=== PATIENT | male | born 1990 | race Caucasian/White ===

== ENCOUNTER 2019-12-10 13:35 | Inpatient (IN) | payer MEDICAID, SELFPAY ==
[~2019-12-10] VITALS: Ht 170.2 cm; Wt 75.3 kg
[~2019-12-10 13:35] MED LIST: DIVA500T52 PO; PALI6 PO; QUET400T PO
[2019-12-10] MEDS ORDERED: RISP.5 PO (14:26)
[2019-12-10 16:27] LABS: BASOPHILS % (AUTO) 0.4 % (0.0-2.0); EOSINOPHILS % (AUTO) 0.3 % (1.0-6.0); HEMATOCRIT 49.9 % (41-53); HEMOGLOBIN 16.1 g/dL (13.5-17.5); LYMPHOCYTES # (AUTO) 1.6 K/uL (1.0-4.8); LYMPHOCYTES % (AUTO) 23.5 % (22.0-44.0); MEAN CORPUSCULAR HEMOGLOBIN 28.5 pg (26.0-34.0); MEAN CORPUSCULAR HGB CONC 32.3 G/dL (31.0-37.0); MEAN CORPUSCULAR VOLUME 88 fL (80-100); MONOCYTES # (AUTO) 0.5 K/uL (0.1-1.0); MONOCYTES % (AUTO) 7.3 % (2.0-9.0); NEUTROPHILS # (AUTO) 4.6 K/uL (1.8-7.7); NEUTROPHILS % (AUTO) 68.5 % (40.0-70.0); PLATELET COUNT (AUTO) 167 K/uL (150-450); RED BLOOD CELL COUNT(AUTO) 5.65 MIL/uL (4.50-5.90)
[2019-12-10 16:39] LABS: ANION GAP 10 mmol/L (8-16); CALCIUM, TOTAL 8.5 mg/dL (8.8-10.5); CARBON DIOXIDE 25 mmol/L (22-29); CHLORIDE 104 mmol/L (98-107); CREATININE 0.61 mg/dL (0.60-1.30); GLOMERULAR FILTR. RATE CALC > 60 mL/min (>60); GLUCOSE,RANDOM 89 mg/dL (70-110); POTASSIUM 3.6 mmol/L (3.5-5.1); SODIUM SERUM 139 mmol/L (136-145); UREA NITROGEN, BLOOD 10 mg/dL (7-18)
[2019-12-10 16:44] LABS: ALANINE AMINOTRANSFERASE 16 U/L (12-78); ALBUMIN 4.2 g/dL (3.4-5.0); ALKALINE PHOSPHATASE 54 U/L (46-116); ASPARTATE AMINOTRANSFERASE 13 U/L (15-37); BILIRUBIN,TOTAL 0.4 mg/dL (0.1-1.0); TOTAL PROTEIN, SERUM 7.8 g/dL (6.4-8.2)
[2019-12-10 16:44] LABS: AMPHET/METH SCREEN,URINE NEGATIVE (NEGATIVE); BARBITURATE SCREEN, URINE NEGATIVE (NEGATIVE); BENZODIAZEPINES SCREEN,URINE NEGATIVE (NEGATIVE); CANNABINOID SCREEN,URINE NEGATIVE (NEGATIVE); COCAINE SCREEN,URINE NEGATIVE (NEGATIVE); METHADONE SCREEN, URINE NEGATIVE (NEGATIVE); OPIATE SCREEN,URINE NEGATIVE (NEGATIVE)
[2019-12-10 16:45] LABS: PHENCYCLIDINE SCREEN,URINE NEGATIVE (NEGATIVE)
[2019-12-10] MEDS ORDERED: DiphenhydrAMINE HCL 25 MG CAPSULE PO ONE (16:45)
[2019-12-10] MEDS ORDERED: HALOPERIDOL 5 MG TABLET PO ONE (16:45)
[2019-12-10] MEDS ORDERED: LORazepam 1 MG TABLET PO ONE (16:45)
[2019-12-10 20:14] VITALS: BP 136/70
[2019-12-10] MEDS ORDERED: PNEUMOCOCCAL VACCINE POLYVALENT 0.5 ML VIAL [PPSV23] IM ONE (20:30)
[2019-12-10] MEDS: DIVALPROEX SODIUM 500 MG DR TABLET PO SCH (21:00)
[2019-12-10] MEDS: RisperiDONE 3 MG TABLET PO SCH (21:37)
[2019-12-11] MEDS ORDERED: DOCUSATE SODIUM 100 MG CAPSULE PO PRN (08:15)
[2019-12-11] MEDS ORDERED: CloNIDine HCL 0.1 MG TABLET PO PRN (08:15)
[2019-12-11] MEDS ORDERED: IBUPROFEN 600 MG TABLET PO PRN (08:15)
[2019-12-11] MEDS ORDERED: LOPERAMIDE HCL 2 MG CAPSULE PO PRN (08:15)
[2019-12-11] MEDS ORDERED: ONDANSETRON HCL 4 MG TABLET PO PRN (08:15)
[2019-12-11] MEDS ORDERED: PETROLATUM,WHITE 28 GM JELLY TP PRN (08:15)
[2019-12-11] MEDS ORDERED: ALBUTEROL SULFATE HFA 90 MCG/PUFF 8 GM INHALER IH PRN (08:15)
[2019-12-11] MEDS ORDERED: BACITRACIN 28.4 GM OINTMENT TP PRN (08:15)
[2019-12-11] MEDS ORDERED: OMEPRAZOLE 20 MG CAPSULE PO PRN (08:15)
[2019-12-11] MEDS ORDERED: MAGNESIUM HYDROXIDE SUSPENSION 30 ML UDCUP PO PRN (08:15)
[2019-12-11] MEDS ORDERED: ACETAMINOPHEN 325 MG TABLET PO PRN (08:15)
[2019-12-11] MEDS: RisperiDONE 3 MG TABLET PO SCH ×2 (08:37→16:52)
[2019-12-11 08:59] LABS: CHOL/HDL RATIO 3.5 (4.2-7.3)
[2019-12-11 09:27] VITALS: BP 132/71
[2019-12-11 17:11] VITALS: BP 146/90
[2019-12-11] MEDS: DIVALPROEX SODIUM 500 MG DR TABLET PO SCH (20:48)
[2019-12-12 06:42] VITALS: BP 108/71
[2019-12-12] MEDS: LORazepam 2 MG TABLET PO PRN (08:22)
[2019-12-12] MEDS: RisperiDONE 3 MG TABLET PO SCH ×2 (08:22→17:26)
[2019-12-12 08:31] VITALS: BP 111/74
[2019-12-12 16:10] VITALS: BP 125/80
[2019-12-12] MEDS: DIVALPROEX SODIUM 500 MG DR TABLET PO SCH (21:43)
[2019-12-13 05:15] VITALS: BP 130/76
[2019-12-13 08:25] VITALS: BP 139/76
[2019-12-13] MEDS: RisperiDONE 3 MG TABLET PO SCH ×2 (08:38→16:01)
[2019-12-13] MEDS ORDERED: RisperiDONE MICROSPHERES 50 MG/2 ML SYRINGE IM ONE (13:00)
[2019-12-13] MEDS: LORazepam 2 MG TABLET PO PRN (16:01)
[2019-12-13 16:13] VITALS: BP 132/85
[2019-12-13] MEDS: ZOLPIDEM TARTRATE 10 MG TABLET PO PRN (21:00)
[2019-12-13] MEDS: DIVALPROEX SODIUM 500 MG DR TABLET PO SCH (21:00)
[2019-12-14 00:32] VITALS: BP 111/77
[2019-12-14 08:21] VITALS: BP 141/86
[2019-12-14] MEDS: LORazepam 2 MG TABLET PO PRN ×2 (08:31→16:33)
[2019-12-14] MEDS: RisperiDONE 3 MG TABLET PO SCH ×2 (08:31→16:33)
[2019-12-14] MEDS: HALOPERIDOL 5 MG TABLET PO PRN ×2 (09:34→16:33)
[2019-12-14] MEDS: ATENOLOL 25 MG TABLET PO SCH (09:34)
[2019-12-14 16:19] VITALS: BP 126/61
[2019-12-14] MEDS: ZOLPIDEM TARTRATE 10 MG TABLET PO PRN (20:37)
[2019-12-14] MEDS: DIVALPROEX SODIUM 500 MG DR TABLET PO SCH (20:37)
[2019-12-15 05:07] VITALS: BP 131/76
[2019-12-15 08:04] VITALS: BP 127/56
[2019-12-15] MEDS: ATENOLOL 25 MG TABLET PO SCH (09:37)
[2019-12-15] MEDS: RisperiDONE 3 MG TABLET PO SCH ×2 (09:37→16:02)
[2019-12-15] MEDS: HALOPERIDOL 5 MG TABLET PO PRN (16:02)
[2019-12-15] MEDS: LORazepam 2 MG TABLET PO PRN (16:02)
[2019-12-15 16:44] VITALS: BP 132/81
[2019-12-15] MEDS: DIVALPROEX SODIUM 500 MG DR TABLET PO SCH (20:18)
[2019-12-16] MEDS: LORazepam 2 MG TABLET PO PRN ×2 (03:40→16:29)
[2019-12-16] MEDS: HALOPERIDOL 5 MG TABLET PO PRN ×2 (03:40→16:29)
[2019-12-16] MEDS: MAG HYDROX/AL HYDROX/SIMETH ES 30 ML SUSPENSION UDCUP PO PRN (03:49)
[2019-12-16 05:00] VITALS: BP 114/63
[2019-12-16] MEDS: RisperiDONE 3 MG TABLET PO SCH ×2 (09:04→16:32)
[2019-12-16] MEDS: ATENOLOL 25 MG TABLET PO SCH (09:04)
[2019-12-16 09:36] VITALS: BP 140/80
[2019-12-16 16:13] VITALS: BP 131/83
[2019-12-16] MEDS: BENZOCAINE/MENTHOL LOZENGE MM PRN ×2 (17:59→22:32)
[2019-12-16] MEDS: DIVALPROEX SODIUM 500 MG DR TABLET PO SCH (20:41)
[2019-12-17 00:39] VITALS: BP 122/79
[2019-12-17 08:00] VITALS: BP 129/69
[2019-12-17] MEDS: HALOPERIDOL 5 MG TABLET PO PRN ×2 (08:01→13:26)
[2019-12-17] MEDS: ATENOLOL 25 MG TABLET PO SCH (08:01)
[2019-12-17] MEDS: LORazepam 2 MG TABLET PO PRN ×2 (08:01→13:26)
[2019-12-17] MEDS: RisperiDONE 3 MG TABLET PO SCH ×2 (08:01→16:16)
[2019-12-17 16:10] VITALS: BP 133/76
[2019-12-17] MEDS: BENZOCAINE/MENTHOL LOZENGE MM PRN ×2 (16:16→21:46)
[2019-12-17] MEDS: DIVALPROEX SODIUM 500 MG DR TABLET PO SCH (21:12)
[2019-12-17] MEDS: ZOLPIDEM TARTRATE 10 MG TABLET PO PRN (21:46)
[2019-12-18 06:30] VITALS: BP 135/79
[2019-12-18] MEDS: BENZOCAINE/MENTHOL LOZENGE MM PRN (06:31)
[2019-12-18] MEDS: ATENOLOL 25 MG TABLET PO SCH (08:35)
[2019-12-18] MEDS: RisperiDONE 3 MG TABLET PO SCH ×2 (08:35→16:39)
[2019-12-18] MEDS: HALOPERIDOL 5 MG TABLET PO PRN ×2 (08:35→16:39)
[2019-12-18] MEDS: LORazepam 2 MG TABLET PO PRN ×2 (08:35→16:39)
[2019-12-18 08:45] VITALS: BP 177/108
[2019-12-18 16:28] VITALS: BP 133/96
[2019-12-18] MEDS: DIVALPROEX SODIUM 500 MG DR TABLET PO SCH (20:39)
[2019-12-18] MEDS: ZOLPIDEM TARTRATE 10 MG TABLET PO PRN (20:39)
[2019-12-19] MEDS: BENZOCAINE/MENTHOL LOZENGE MM PRN ×2 (01:09→06:18)
[2019-12-19 01:18] VITALS: BP 124/87
[2019-12-19] MEDS: HALOPERIDOL 5 MG TABLET PO PRN ×2 (08:29→16:38)
[2019-12-19] MEDS: ATENOLOL 25 MG TABLET PO SCH (08:30)
[2019-12-19] MEDS: RisperiDONE 3 MG TABLET PO SCH ×2 (08:30→16:38)
[2019-12-19] MEDS: LORazepam 2 MG TABLET PO PRN ×2 (08:30→16:38)
[2019-12-19] MEDS: MAG HYDROX/AL HYDROX/SIMETH ES 30 ML SUSPENSION UDCUP PO PRN (08:31)
[2019-12-19 09:12] VITALS: BP 130/88
[2019-12-19 16:25] VITALS: BP 138/78
[2019-12-19] MEDS: ZOLPIDEM TARTRATE 10 MG TABLET PO PRN (20:30)
[2019-12-19] MEDS: DIVALPROEX SODIUM 500 MG DR TABLET PO SCH (20:30)
[2019-12-20 01:30] VITALS: BP 113/71
[2019-12-20] MEDS: BENZOCAINE/MENTHOL LOZENGE MM PRN (03:19)
[2019-12-20] MEDS: RisperiDONE 3 MG TABLET PO SCH ×2 (08:24→17:59)
[2019-12-20] MEDS: ATENOLOL 25 MG TABLET PO SCH (08:24)
[2019-12-20] MEDS: LORazepam 2 MG TABLET PO PRN ×2 (08:25→17:59)
[2019-12-20] MEDS: MAG HYDROX/AL HYDROX/SIMETH ES 30 ML SUSPENSION UDCUP PO PRN (08:25)
[2019-12-20 08:39] VITALS: BP 149/87
[2019-12-20] MEDS ORDERED: RISP3 PO (15:49)
[2019-12-20] MEDS ORDERED: DIVA-78 PO (15:49)
[2019-12-20] MEDS ORDERED: ATEN-187 PO (15:49)
[2019-12-20] MEDS: HALOPERIDOL 5 MG TABLET PO PRN (17:59)
[2019-12-20 18:00] VITALS: BP 132/78
[2019-12-20] MEDS: ZOLPIDEM TARTRATE 10 MG TABLET PO PRN (20:28)
[2019-12-20] MEDS: DIVALPROEX SODIUM 500 MG DR TABLET PO SCH (20:28)
[2019-12-21 00:30] VITALS: BP 129/74
[2019-12-21] MEDS: BENZOCAINE/MENTHOL LOZENGE MM PRN (01:25)
[2019-12-21 08:47] VITALS: BP 127/70
[2019-12-21] MEDS: ATENOLOL 25 MG TABLET PO SCH (08:49)
[2019-12-21] MEDS: RisperiDONE 3 MG TABLET PO SCH (08:49)
[2019-12-21] MEDS: MAG HYDROX/AL HYDROX/SIMETH ES 30 ML SUSPENSION UDCUP PO PRN (08:49)
== END 2019-12-21 13:15 | disposition home or self-care (01) | DRG 750 ==
LOC: EMS 13:37 → B3A 18:37
PROVIDERS: ADMIT Psychiatry & Neurology Psychiatry; ATTEND Psychiatry & Neurology Psychiatry
DX: F20.0 Paranoid schizophrenia (principal); F10.231 Alcohol dependence with withdrawal delirium; Z59.0 Homelessness; F84.0 Autistic disorder; I10 Essential (primary) hypertension; J44.9 Chronic obstructive pulmonary disease, unspecified; Z72.0 Tobacco use; K21.9 Gastro-esophageal reflux disease without esophagitis
CPT/HCPCS: G0480; J2794; Q0162

== ENCOUNTER 2020-02-17 13:46 | Emergency (ER) | payer MEDICAID ==
[~2020-02-17] VITALS: Ht 167.6 cm; Wt 77.3 kg
[~2020-02-17 13:46] MED LIST changes: +ATEN-187 PO; +DIVA-112 PO; -DIVA500T52 PO; -PALI6 PO; -QUET400T PO; +RISP3TAB14 PO
[2020-02-17] MEDS ORDERED: PALI1.5T7 PO (13:59)
[2020-02-17] MEDS ORDERED: ARIP2 PO (13:59)
[2020-02-17 15:43] LABS: BASOPHILS % (AUTO) 0.2 % (0.0-2.0); EOSINOPHILS % (AUTO) 0.4 % (1.0-6.0); HEMATOCRIT 44.2 % (41-53); HEMOGLOBIN 14.5 g/dL (13.5-17.5); LYMPHOCYTES # (AUTO) 1.4 K/uL (1.0-4.8); LYMPHOCYTES % (AUTO) 18.6 % (22.0-44.0); MEAN CORPUSCULAR HEMOGLOBIN 28.3 pg (26.0-34.0); MEAN CORPUSCULAR HGB CONC 32.8 G/dL (31.0-37.0); MEAN CORPUSCULAR VOLUME 86 fL (80-100); MONOCYTES % (AUTO) 13.1 % (2.0-9.0); NEUTROPHILS # (AUTO) 5.1 K/uL (1.8-7.7); NEUTROPHILS % (AUTO) 67.7 % (40.0-70.0); PLATELET COUNT (AUTO) 158 K/uL (150-450); RED BLOOD CELL COUNT(AUTO) 5.13 MIL/uL (4.50-5.90)
[2020-02-17 16:03] LABS: ANION GAP 5 mmol/L (8-16); CALCIUM, TOTAL 8.3 mg/dL (8.8-10.5); CARBON DIOXIDE 28 mmol/L (22-29); CHLORIDE 101 mmol/L (98-107); CREATININE 0.83 mg/dL (0.60-1.30); GLOMERULAR FILTR. RATE CALC > 60 mL/min (>60); GLUCOSE,RANDOM 99 mg/dL (70-110); POTASSIUM 4.1 mmol/L (3.5-5.1); SODIUM SERUM 134 mmol/L (136-145); UREA NITROGEN, BLOOD 16 mg/dL (7-18)
[2020-02-17 16:37] LABS: ALANINE AMINOTRANSFERASE 40 U/L (12-78); ALBUMIN 3.3 g/dL (3.4-5.0); ALKALINE PHOSPHATASE 39 U/L (46-116); ASPARTATE AMINOTRANSFERASE 92 U/L (15-37); BILIRUBIN,TOTAL 0.5 mg/dL (0.1-1.0); TOTAL PROTEIN, SERUM 7.1 g/dL (6.4-8.2)
[2020-02-17 16:39] LABS: CREATINE KINASE, TOTAL ONLY 3979 U/L (39-308)
[2020-02-17] MEDS ORDERED: SODIUM CHLORIDE 0.9% 1,000 ML IV ONE ×2 (16:45)
[2020-02-17 17:35] LABS: APPEARANCE,URINE CLEAR (CLEAR); BILIRUBIN,URINE NEGATIVE (NEGATIVE); GLUCOSE, URINE (UA) NEGATIVE (NEGATIVE); KETONES,URINE TRACE mg/dL (NEGATIVE); LEUKOCYTE ESTERASE ,URINE NEGATIVE (NEGATIVE); NITRATE,URINE NEGATIVE (NEGATIVE); OCCULT BLOOD,URINE NEGATIVE (NEGATIVE); PH,URINE 5.5 (5.0-8.0); PROTEIN,URINE NEGATIVE (NEGATIVE); UROBILINOGEN,URINE 0.2 mg/dL (<=1.0)
[2020-02-17 17:45] LABS: BACTERIA,URINE None Seen /HPF (None Seen); RBC,URINE None Seen /HPF (0-2); SQUAMOUS EPITHELIAL CELL,UR Rare /LPF (None Seen); WBC,URINE None Seen /HPF (0-5)
[2020-02-17 18:58] VITALS: BP 149/86
== END 2020-02-17 19:19 | disposition home or self-care (01) ==
LOC: EMS 13:57
DX: L55.0 Sunburn of first degree (principal); R74.8 Abnormal levels of other serum enzymes; F31.9 Bipolar disorder, unspecified; F20.9 Schizophrenia, unspecified; I10 Essential (primary) hypertension
CPT/HCPCS: 36415; 80053; 81001; 82550; 85025; 93005; 99284; J7030